=== PATIENT | female | born 1980 | race Caucasian/White ===

== ENCOUNTER 2021-06-08 00:48 | Emergency (ER) | payer MEDICAID ==
[~2021-06-08] VITALS: Ht 170.2 cm; Wt 65.8 kg
[2021-06-08] MEDS ORDERED: OLANZAPINE 5 MG TABLET ONE (01:30)
[2021-06-08] MEDS ORDERED: OLANZAPINE 5 MG TABLET PO ONE (01:30)
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
--- NOTE | 2021-06-08 01:35 | NUR ---
LAB AT BEDSIDE
--- NOTE | 2021-06-08 01:51 | NUR ---
COVID SWAB SENT TO LAB
--- NOTE | 2021-06-08 01:52 | NUR ---
ASKED PT FOR URINE SAMPLE, PATIENT STATED "HERE", AND BEGAN TO URINATE ON THE FLOOR.
[2021-06-08 01:57] LABS: BASOPHILS # (AUTO) 0.1 K/uL (0.0-0.2); BASOPHILS % (AUTO) 0.6 % (0.0-2.0); EOSINOPHILS % (AUTO) 2.6 % (0.0-6.0); HEMATOCRIT 32 % (33-45); HEMOGLOBIN 10.7 g/dL (11.5-14.8); LYMPHOCYTES # (AUTO) 4.1 K/uL (0.8-4.8); LYMPHOCYTES % (AUTO) 36.6 % (20.0-44.0); MEAN CORPUSCULAR HGB CONC 33 g/dl (31.0-36.0); MEAN CORPUSCULAR VOLUME 80 fL (82-100); MONOCYTES # (AUTO) 0.7 K/uL (0.1-1.30); NEUTROPHILS % (AUTO) 54.2 % (43.0-81.0); PLATELET COUNT (AUTO) 283 K/uL (150-450); RED BLOOD CELL COUNT(AUTO) 4.06 MIL/uL (4.0-5.2); WHITE BLOOD COUNT (AUTO) 11.1 K/uL (4.3-11.0)
[2021-06-08 02:24] LABS: ALANINE AMINOTRANSFERASE 22 U/L (12-78); ALBUMIN 3.7 g/dL (3.4-5.0); ALCOHOL, BLOOD < 3 mg/dL (0-0); ALKALINE PHOSPHATASE 71 U/L (46-116); ASPARTATE AMINOTRANSFERASE 20 U/L (15-37); BILIRUBIN,DIRECT 0.1 mg/dL (0.0-0.2); BILIRUBIN,TOTAL 0.2 mg/dL (0.2-1.0); CALCIUM, SERUM 8.8 mg/dL (8.5-10.1); CARBON DIOXIDE 24 mmol/L (21-32); CHLORIDE 105 mmol/L (98-107); CREATININE 1.1 mg/dL (0.6-1.3); GLUCOSE 97 mg/dL (74-106); POTASSIUM 3.9 mmol/L (3.5-5.1); SODIUM SERUM 139 mmol/L (136-145); UREA NITROGEN, BLOOD 27 mg/dL (7-18)
[2021-06-08 02:26] LABS: ACETAMINOPHEN 0 ug/ml (10-30)
[2021-06-08 02:31] LABS: THYROID STIMULATING HORMONE 3.114 uIU/mL (0.358-3.74)
--- NOTE | 2021-06-08 06:55 | NUR ---
URINE COLLECTED, SENT TO LAB.
[2021-06-08 07:18] LABS: BILIRUBIN,URINE NEGATIVE (NEGATIVE); COLOR,URINE YELLOW (YELLOW); LEUKOCYTE ESTERASE ,URINE SMALL (NEGATIVE); NITRITE, URINE NEGATIVE (NEGATIVE); PROTEIN,URINE NEGATIVE (NEGATIVE); UGLUCOSE NEGATIVE (NEGATIVE); UROBILINOGEN,URINE 0.2 EU/dL (0.2)
[2021-06-08 10:21] LABS: BACTERIA,URINE Rare /HPF (None Seen); RBC,URINE 0-4 /HPF (0-2); SQUAMOUS EPITHELIAL CELL,UR Few /HPF (None Seen)
--- NOTE | 2021-06-08 17:30 | NUR ---
FAXED CLINICALS TO [facility] INTAKE
--- NOTE | 2021-06-08 17:35 | NUR ---
PT AWAKE AND EATING DINNER. ALL NEEDS MET AT THIS TIME
--- NOTE | 2021-06-08 18:55 | NUR ---
AT [phone].ACCEPTED TO [facility] UNDER DR OLGUIN, TO THE FRONT LOBBY, REPORT TO SHIRA BUTLER. CALL OR TEXT SUSY AFTER REPORT SO HE CAN SEND TX WITHIN 20 MINUTES
--- NOTE | 2021-06-08 19:21 | NUR ---
Patient discharged to [facility] in stable condition. Written and verbal after care instructions given. Patient verbalizes understanding of instruction. PT DC VIA AMBULANCE. VSS
[2021-06-08 20:43] VITALS: BP 131/78
== END 2021-06-08 19:21 ==
LOC: ER 00:53
DX: F20.9 Schizophrenia, unspecified (principal); Z59.02 Unsheltered homelessness; R03.0 Elevated blood-pressure reading, without diagnosis of hypertension; Z20.822 Contact with and (suspected) exposure to COVID-19; F17.200 Nicotine dependence, unspecified, uncomplicated
CPT/HCPCS: 36415; 80048; 80076; 80143; 80307; 80320; 81001; 84443; 84703; 85025; 87086; 87426; 99285; C9803; G0480